=== PATIENT | female | born 1985 | race Caucasian/White ===

== ENCOUNTER 2017-07-26 15:49 | Emergency (ER) | payer OTHER ==
[~2017-07-26] VITALS: Ht 157.5 cm; Wt 74.8 kg
[~2017-07-26 15:49] MED LIST: CYCL10 PO; HYDACE5 PO; NAPR375 PO; NAPR550 PO; PROACE100 PO; RXCYCL10 PO; TRAM50 PO
== END 2017-07-26 17:30 | disposition home or self-care (01) ==
LOC: ER 15:49
DX: S09.90XA Unspecified injury of head, initial encounter (principal); V80.010A Animal-rider injured by fall from or being thrown from horse in noncollision accident, initial encounter
CPT/HCPCS: 70450; 99284

== ENCOUNTER → 2020-09-09 | Outpatient (CLI) | payer OTHER ==
[2020-09-13 15:10] LABS: HPV 16 Negative (Negative); HPV 18 Negative (Negative); HPV OTHER HR TYPES Positive (Negative)
== END | disposition home or self-care (01) ==
LOC: LAB SHORT 10:36 → LAB 10:36
PROVIDERS: Obstetrics & Gynecology
DX: R87.619 Unspecified abnormal cytological findings in specimens from cervix uteri (principal)
CPT/HCPCS: 87624; 87625; G0123

== ENCOUNTER 2021-04-17 10:11 | Day surgery (SDC) | payer OTHER ==
[2021-04-14 14:43] LABS: BASOPHILS ABSOLUTE AUTO 0.04 K/mm3 (0.00-0.23); BASOPHILS PERCENT AUTO 1 % (0-2); EOSINOPHILS ABSOLUTE AUTO 0.13 K/mm3 (0.00-0.68); EOSINOPHILS PERCENT AUTO 2 % (0-6); Hematocrit 37.4 % (33.0-51.0); Hemoglobin 12.5 g/dL (11.5-16.0); IMMATURE GRAN ABSOLUTE AUTO 0.03 K/mm3 (0.00-0.10); IMMATURE GRAN PERCENT AUTO 0 % (0-1); LYMPHOCYTES ABSOLUTE AUTO 2.37 K/mm3 (0.84-5.20); LYMPHOCYTES PERCENT AUTO 27 % (21-46); MONOCYTES ABSOLUTE AUTO 0.39 K/mm3 (0.16-1.47); MONOCYTES PERCENT AUTO 5 % (4-13); Mean Corpuscular HGB 28.9 pg (26.0-34.0); Mean Corpuscular HGB Conc 33.4 g/dL (31.5-36.5); Mean Corpuscular Volume 86 fL (80-100); Mean Platelet Volume 10.5 fL (9.1-12.4); NEUTROPHILS ABSOLUTE AUTO 5.74 K/mm3 (1.96-9.15); NEUTROPHILS PERCENT AUTO 66 % (41-73); Platelet Count 240 K/mm3 (150-400); RDW Coefficient Variation 12.6 % (11.7-14.2); RDW Standard Deviation 39.6 fL (35.1-46.3); Red Blood Cell Count 4.33 M/mm3 (3.80-5.20)
[~2021-04-17] VITALS: Ht 157.5 cm; Wt 84.4 kg
[2021-04-17] MEDS ORDERED: MISO200 PO (10:30)
--- NOTE | 2021-04-17 10:59 | NUR ---
PT AMBULATES TO [facility] C STEADY GAIT. History, Chart, Medications and Allergies reviewed before start of procedure. Lungs clear T/O to Auscultation. Patient confirms NPO status and agrees with scheduled surgery. Patient States Post-Procedure ride home has been arranged.
--- NOTE | 2021-04-17 14:14 | NUR ---
REPORT GIVEN TO VIRGEN AVILA RN.
--- NOTE | 2021-04-17 14:15 | NUR ---
REPORT FROM REYNALDO MACIEL AT THIS TIME.
--- NOTE | 2021-04-17 14:46 | NUR ---
PT EATING AND DRINKING s DIFFICULTY. DENIES NAUSEA. INCREASED LOW ABD PAIN. MEDICATED c PERCOCET 1 TAB PER ORDERS. GIVEN DC/MED INSTRUCTIONS. VERBALIZES AN UNDERSTANDING s QUESTIONS. SCANT AMOUNT OF BLEEDING TO PERIPAD. NEW PERIPAD AND [place] PANTIES PROVIDED. PT ABLE TO DRESS SELF s DIFFICULTY. AMBULATES TO RESTROOM s STEADY GAIT. IV DC'D, CATH INTACT AND PRESSURE DRESSING APPLIED. OTD IN NAD VIA WC TO SAFE RIDE HOME. PAPERWORK SIGNED BY .
== END 2021-04-17 23:27 | disposition home or self-care (01) ==
LOC: ORSCMMR 10:11 → ORD 11:30 → ORSCMMR 23:27
PROVIDERS: Obstetrics & Gynecology
PROC: 10D17ZZ Extraction of Products of Conception, Retained, Via Natural or Artificial Opening (ICD-10-PCS; principal; 2021-04-17 11:30)
DX: O02.1 Missed abortion (principal); K21.9 Gastro-esophageal reflux disease without esophagitis
CPT/HCPCS: 36415; 85025; 86850; 86900; 86901; A9270; J1100; J2250; J2405; J2704; J2791; J3010; J7120